=== PATIENT | male | born 1960 | race Hispanic/Latino ===

== ENCOUNTER 2019-07-16 20:07 | Emergency (ER) | payer SELFPAY ==
[2019-07-16] MEDS ORDERED: Aspirin 325 MG TAB ONE (20:25)
[2019-07-16] MEDS ORDERED: Nitroglycerin 2% Ointment 1 INCH/1 GM Packet ONE (20:25)
[2019-07-16 20:43] LABS: CK (CPK) 76 U/L (30-200); Lipase 17 U/L (8-78)
[2019-07-16 20:55] LABS: #Basophils 0.1 thou/uL (0.0-0.2); #Monocytes 0.8 thou/uL (0.11-0.59); #Neutrophils 5.6 thou/uL (1.40-6.50); %Basophils 1.3 % (0.0-1.0); %Eosinophils 0.6 % (0.0-10.0); %Lymphocytes 12.8 % (21.0-51.0); %Monocytes 10.9 % (0.0-10.0); %Neutrophils 74.4 % (42.0-75.0); Hemoglobin 16.3 g/dL (14.0-18.0); Mean Corpuscular Hemoglobin 29.8 pg (27.0-31.0); Mean Corpuscular Volume 93.1 fL (78.0-98.0); Mean Platelet Volume 6.7 fL (7.4-10.4); Platelet Count 328 thou/uL (130-400); Platelet Morphology Comment Appears Adequate; RBC Distribution Width 10.9 % (11.5-14.5); Red Blood Cell (RBC) Count 5.47 mill/uL (4.70-6.10); White Blood Cell (WBC) Count 7.6 thou/uL (4.8-10.8)
[2019-07-16 21:01] LABS: CKMB 2.5 ng/mL (0-6.6)
--- NOTE | 2019-07-16 21:01 | RAD ---
EXAM: CHEST ONE VIEW: 07/16/19 HISTORY: Pain. COMPARISON: None. FINDINGS: Normal cardiac silhouette. Lungs and pleural spaces are clear. No pneumothorax or osseous abnormaliti es. IMPRESSION: No acute cardiopulmonary process. POS: PPP
[2019-07-16] MEDS ORDERED: Enoxaparin Sodium 80 MG/0.8 ML SYRINGE ONE (21:10)
[2019-07-16] MEDS ORDERED: Morphine 4 MG/ML VIAL ONE (21:43)
[2019-07-16] MEDS ORDERED: Sodium Chloride 0.9% 1,000 ML ONE (21:51)
[2019-07-16 21:56] LABS: ALT (SGPT) 15 U/L (8-55); AST (SGOT) 10 U/L (5-34); Alkaline Phosphatase 84 U/L (40-110); Anion Gap 19 mmol/L (10-20); BUN (Urea Nitrogen) 11 mg/dL (8.4-25.7); Bilirubin, Total 0.7 mg/dL (0.2-1.2); Calc. Creatinine Clearance 0 mL/min (70-130); Calcium 8.9 mg/dL (7.8-10.44); Carbon Dioxide 18 mmol/L (22-29); Chloride 101 mmol/L (98-107); Estimated GFR-MDRD 68; Globulin 3.1 g/dL (2.4-3.5); Glucose 383 mg/dL (70-105); Potassium 3.9 mmol/L (3.5-5.1); Protein, Total 7.1 g/dL (6.0-8.3); Sodium 134 mmol/L (136-145)
[2019-07-16] MEDS ORDERED: Insulin Regular 300 UNITS/3 ML VIAL ONE (22:26)
--- NOTE | 2019-07-16 22:42 | CT ---
CT arteriogram chest with IV contrast and 3-D imaging HISTORY: Chest pain. FINDINGS: There is good contrast opacification of the central pulmonary arteries and the thoracic aor ta with normal at the aortic arch. Motion artifact obscures detail somewhat. Calcified mediastinal lymph nodes are consistent with healed granulomatous disease. There is subtle c ircumferential wall thickening of the mid to distal esophagus without focal mass apparent. IMPRESSION: No CT evidence of pulmonary embolus. Subtle circumferential wall thickening of the mid to distal esophagus. Clinical correlation regarding other signs and symptoms of esophagitis is required.
== END 2019-07-16 22:39 | disposition short-term general hospital (02) ==
LOC: MADERS 20:07
DX: R07.9 Chest pain, unspecified (principal); E11.9 Type 2 diabetes mellitus without complications; I10 Essential (primary) hypertension; Z79.4 Long term (current) use of insulin; Z79.899 Other long term (current) drug therapy
CPT/HCPCS: 71045; 71275; 80053; 82550; 82553; 83690; 83880; 84484; 85025; 85379; 93005; 94760; 96361; 96372; 96374; J1650; J1815; J2270; J7050